=== PATIENT | female | born 1940 | race Caucasian/White ===

== ENCOUNTER 2021-08-20 13:50 | Outpatient (CLI) | payer MEDICARE | END 2021-08-20 13:51 | disposition home or self-care (01) | LOC: CSHMAMMO 13:50 | PROVIDERS: ATTEND Obstetrics & Gynecology | DX: Z12.31 Encounter for screening mammogram for malignant neoplasm of breast (principal); Z80.3 Family history of malignant neoplasm of breast | CPT/HCPCS: 77063; 77067 ==

== ENCOUNTER 2022-09-17 14:12 | Outpatient (CLI) | payer MEDICARE | END 2022-09-17 14:13 | disposition home or self-care (01) | LOC: CSHMAMMO 14:12 | PROVIDERS: ATTEND Obstetrics & Gynecology | DX: Z12.31 Encounter for screening mammogram for malignant neoplasm of breast (principal); Z80.3 Family history of malignant neoplasm of breast | CPT/HCPCS: 77063; 77067 ==

== ENCOUNTER 2022-09-19 15:00 | Outpatient (CLI) | payer MEDICARE | END 2022-09-19 15:01 | disposition home or self-care (01) | LOC: CSHULT 15:00 | PROVIDERS: ATTEND Obstetrics & Gynecology | DX: N63.10 Unspecified lump in the right breast, unspecified quadrant (principal); N60.01 Solitary cyst of right breast ==

== ENCOUNTER 2023-02-19 11:57 | Outpatient (CLI) | payer MEDICARE | END 2023-02-19 11:58 | disposition home or self-care (01) | LOC: CSHCT 11:57 | PROVIDERS: ATTEND Internal Medicine | DX: M54.50 Low back pain, unspecified (principal); R31.29 Other microscopic hematuria | CPT/HCPCS: 74176 ==

== ENCOUNTER 2023-03-24 13:15 | Outpatient (CLI) | payer MEDICARE | END 2023-03-24 13:16 | disposition home or self-care (01) | LOC: CSHMAMMO 13:15 | PROVIDERS: ATTEND Obstetrics & Gynecology | DX: N60.11 Diffuse cystic mastopathy of right breast (principal) | CPT/HCPCS: 76642; 77065; G0279 ==

== ENCOUNTER 2024-01-06 10:26 | Outpatient (CLI) | payer MEDICARE | END 2024-01-06 10:27 | disposition home or self-care (01) | LOC: CSHMAMMO 10:26 | PROVIDERS: ATTEND Family Medicine | DX: Z12.31 Encounter for screening mammogram for malignant neoplasm of breast (principal); Z80.3 Family history of malignant neoplasm of breast | CPT/HCPCS: 77063; 77067 ==